=== PATIENT | male | born 1995 ===

== ENCOUNTER 2017-12-02 20:49 | Emergency (ER) | payer MEDICAID ==
[2017-12-02 21:37] VITALS: BP 133/86; PULSE 87; RESP 20; TEMP 98.5; O2SAT 98
[2017-12-02] MEDS ORDERED: Benzoin Compound Tincture (60 ml) ONE (22:33)
--- NOTE | 2017-12-02 22:54 | C.PDOC ---
History Of Present Illness 21 year old male presents to the emergency department for evaluation of a dog bite to the left lower leg sustained prior to arrival. Patient reports walking on the street when a dog began to hope him and "grabbed me by my leg". Patient noticed a laceration to his left leg. Pt states , " I might know the contract administrative assistant of the dog, and dog is "crazy". Otherwise, pt denies any other associated injuries, denies fever, chills, throat tightness or swelling, CP, SOB, abd. pain, N/V, denies left leg weakness, deformity, sensory or vascular deficits to Left leg. Ambulate to Ed for evaluation, not in any apparent distress. FYI: Pt reports" I have wedding tomorrow", and request to be seen quick and discharge now. Pt was offered rabies vaccination but refused at this time, " I dont have time and I will check with dogs contract administrative assistant". Time Seen by Provider: 12/02/17 21:45 Chief Complaint (Nursing): Bite History Per: Patient History/Exam Limitations: no limitations Onset/Duration Of Symptoms: Hrs Current Symptoms Are (Timing): Still Present Location Of Injury: Left: Leg Quality Of Symptoms: Other (laceration/bite) - Animal Bite Description Of The Attack: Unprovoked Attack Description Of The Animal: Unknown Reports Animal Appears: Unknown Past Medical History Reviewed: Historical Data, Nursing Documentation, Vital Signs Vital Signs: Last Vital Signs Temp 98.5 F 12/02/17 21:35 Pulse 87 12/02/17 21:35 Resp 20 12/02/17 23:11 BP 133/86 12/02/17 21:35 Pulse Ox 98 12/02/17 23:26 - Medical History PMH: No Chronic Diseases Surgical History: No Surg Hx Family History: States: No Known Family Hx - Social History Hx Alcohol Use: No Hx Substance Use: No - Immunization History Hx Tetanus Toxoid Vaccination: Yes ("this year") Review Of Systems Except As Marked, All Systems Reviewed And Found Negative. Musculoskeletal: Positive for: Leg Pain (left leg) Skin: Positive for: Other (laceration to lower left leg) Physical Exam - Physical Exam Appears: Well, Non-toxic, No Acute Distress Skin: Normal Color, Warm, Dry, Other (linear laceration to left lower leg) Head: Normacephalic Eye(s): bilateral: PERRL Nose: No Flaring, No Discharge Oral Mucosa: Moist, No Drooling Throat: No Erythema, No Drooling Neck: Trachea Midline, Supple Cardiovascular: Rhythm Regular Respiratory: No Decreased Breath Sounds, No Accessory Muscle Use, No Stridor, No Wheezing Gastrointestinal/Abdominal: Soft, No Tenderness, No Distention, No Guarding, No Rebound Extremity: Normal ROM, No Pedal Edema, No Deformity, No Swelling Neurological/Psych: Oriented x3, Normal Speech, Normal Motor, Normal Sensation, Normal Reflexes ED Course And Treatment O2 Sat by Pulse Oximetry: 98 (RA) Pulse Ox Interpretation: Normal Progress Note: On re-eval, pt is afebrile, hemodynamicaly stable. NOn-toxic. Ambulatory in ED with stable gait. ENT: No acute findings. Neck: Supple, (-) midline tenderness. Lungs: CTA B/L, BS equal B/L. LLE: wounds throughly cleaned, covered with steri-stips. FAROM, no neurovascular deficits, no cellulitis. Neurologicaly intact. tetanus is UTD. Abx oral given. Pt advised to F/U with dogs contract administrative assistant/Animal Control/or returen to ED to complete rabies vaccination chandni. Pt understand and agrees with plan. Laceration - Laceration Repair Left lower leg Wound Length (In cm): multiple with total length 10cm Description Of Wound: Linear (superficial) Anesthesia: Lidocaine 2% Wound Examination: Irrigated With Saline, No FB With Wound Exploration, No Tendon Injury With Wound Exploration Wound Closure: Steri Strips Wound Complexity: Simple Disposition Counseled Patient/Family Regarding: Diagnosis, Need For Followup, Rx Given - Disposition Referrals: [facility] [Outside] Disposition: HOME/ ROUTINE Disposition Time: 22:52 Condition: STABLE Additional Instructions: Keep wound dry for 3-4 days Encourage to find dog or contract administrative assistant for rabies vaccination status, or contact animal control. return to ED at any time to complete treatment with rabies vaccination Take medication as prescribed return to Ed at any time if nay worsening or new changes. Prescriptions: Amoxicillin/Clavulanate [Augmentin 875 MG-125 MG] 1 tab PO BID #14 tab traMADol [Ultram] 50 mg PO TID #7 tab Instructions: Animal Bites (DC) Forms: PAK (Hungarian) - Clinical Impression Clinical Impression: Animal bite wound - PA / COLLECTIONS ASSOCIATE / Resident Statement MD/DO has reviewed & agrees with the documentation as recorded. - Scribe Statement The provider has reviewed the documentation as recorded by the Scribe (Deondre Connors) All medical record entries made by the Scribe were at my direction and personally dictated by me. I have reviewed the chart and agree that the record accurately reflects my personal performance of the history, physical exam, medical decision making, and the department course for this patient. I have also personally directed, reviewed, and agree with the discharge instructions and disposition.
[2017-12-02] MEDS ORDERED: Amoxicillin-Clav 875-125 mg Tab PO ONE (22:57)
[2017-12-02] MEDS: Amoxicillin-Clav 875-125 mg Tab PO STA (22:58)
== END 2017-12-02 23:10 | disposition home or self-care (01) ==
LOC: C.ER 20:49
DX: S81.852A Open bite, left lower leg, initial encounter (principal); W54.0XXA Bitten by dog, initial encounter

== ENCOUNTER 2017-12-06 08:23 | Emergency (ER) | payer MEDICAID ==
[2017-12-06 08:36] VITALS: BMI 17.9
[2017-12-06 08:38] VITALS: RESP 18; O2SAT 100
--- NOTE | 2017-12-06 08:43 | C.PDOC ---
History Of Present Illness 22 year old male presents to the ED complaining of persistent left eye blurry vision with foreign body sensation from left periorbital injury sustained 4 days ago. He denies any LOC, nausea, vomiting, fever. He was seen on 12/02 for left leg bite but he is noncompliant with antibiotics stating "I only got the antibiotics today". L PERIORB INJURY 4 DAYS AGO CO PERSIST L EYE BLURRY VISION, FB SENSATION. NO LOC , NV. SEEN 12/02 FOR L LEG BITE BUT NONCOMPLIANT W ABX "I ONLY GOT THE ABX TODAY ". NO FEVER. SEEN 12/02 S/P DOG BITE. GIVEN Amoxicillin/Clavulanate [Augmentin 875 MG-125 MG] 1 tab PO BID #14 tab traMADol [Ultram] 50 mg PO TID #7 tab EXAM NONTOXIC HEENT L PERIORB HEMATOMA W MILD SWELLING, NONPITTING. CONJ CLEAR, NO HYPHEMA CHRISTINE. NO GROSS VISION DEF. EOMI. NO CREPITUS. NOSE MIDLINE NECK SUPPLE NEURO NO FOCAL DEF SKIN MULT LACS L LOWER LAC W SCANT LOCAL ERYTHEMA. NO PUS EXT L LOWER LEG NO SWELL, DEFORM. Time Seen by Provider: 12/06/17 08:41 Chief Complaint (Nursing): Eye Problem History Per: Patient History/Exam Limitations: no limitations Onset/Duration Of Symptoms: Days Current Symptoms Are (Timing): Still Present Injury To Eye?: Yes Associated Symptoms: Decreased Vision, FB Sensation Past Medical History Reviewed: Historical Data, Nursing Documentation, Vital Signs Vital Signs: Last Vital Signs Temp 98.2 F 12/06/17 08:35 Pulse 96 H 12/06/17 08:35 Resp 18 12/06/17 08:35 BP 132/92 H 12/06/17 08:35 Pulse Ox 100 12/06/17 09:45 - Medical History PMH: No Chronic Diseases Surgical History: No Surg Hx Family History: States: No Known Family Hx - Social History Hx Alcohol Use: No Hx Substance Use: No - Immunization History Hx Tetanus Toxoid Vaccination: Yes ("this year") Hx Influenza Vaccination: No Hx Pneumococcal Vaccination: No Review Of Systems Except As Marked, All Systems Reviewed And Found Negative. Constitutional: Negative for: Fever Eyes: Positive for: Vision Change, Other (FB sensation ) Gastrointestinal: Negative for: Nausea, Vomiting Physical Exam - Physical Exam Appears: Non-toxic Skin: Other (MULT LACS L LOWER LAC W SCANT LOCAL ERYTHEMA. NO PUS) Head: Normacephalic Eye(s): bilateral: PERRL, EOMI, right: Normal Inspection, left: Other (L PERIORB HEMATOMA W MILD SWELLING, NONPITTING. CONJ CLEAR, NO HYPHEMA. NO GROSS VISION DEF. NO CREPITUS.) Nose: Other (Midline ) Oral Mucosa: Moist Neck: Supple Chest: Symmetrical Extremity: Deformity, No Swelling Neurological/Psych: Oriented x3, Normal Speech, No Other (focal deficits ) Gait: Steady ED Course And Treatment O2 Sat by Pulse Oximetry: 100 (RA) Pulse Ox Interpretation: Normal Progress - Data Reviewed Data Reviewed: Old records Medical Decision Making Medical Decision Making: SEEN 12/02 S/P DOG BITE. GIVEN Amoxicillin/Clavulanate [Augmentin 875 MG-125 MG] 1 tab PO BID #14 tab traMADol [Ultram] 50 mg PO TID #7 tab Disposition Counseled Patient/Family Regarding: Studies Performed, Diagnosis, Need For Followup, Rx Given - Disposition Referrals: Ignacio Nuñez [Staff Provider] - Disposition: HOME/ ROUTINE Disposition Time: 11:16 Condition: IMPROVED Additional Instructions: TAKE ANTIBIOTICS PREVIOUSLY PRESCRIBED. FOLLOW UP IMMEDIATELY AT OPTHOMOLOGY OFFICE Prescriptions: Polymyxin/Trimethoprim Sulfate [Polytrim Ophth Soln] 1 drop OD Q3H #1 bottle Instructions: Eye Contusion (DC) Forms: [facility] (Malian), Work Excuse - Clinical Impression Clinical Impression: Periorbital contusion, Blurry vision - Scribe Statement The provider has reviewed the documentation as recorded by the Danielibdillan Reeves All medical record entries made by the Scribe were at my direction and personally dictated by me. I have reviewed the chart and agree that the record accurately reflects my personal performance of the history, physical exam, medical decision making, and the department course for this patient. I have also personally directed, reviewed, and agree with the discharge instructions and disposition.
[2017-12-06] MEDS ORDERED: Amoxicillin-Clav 875-125 mg Tab PO STA (08:59)
[2017-12-06] MEDS ORDERED: Amoxicillin-Clav 875-125 mg Tab PO ONE (09:14)
--- NOTE | 2017-12-06 11:07 | CT ---
Date of service: 12/06/2017 PROCEDURE: CT ORBITS WITHOUT CONTRAST. HISTORY: L PERIORB TRAUMA COMPARISON: None available. TECHNIQUE: Axial CT images of the orbits were obtained. Coronal and sagittal reformats were generated. Radiation dose: Total exam DLP = 803.24 mGy-cm. This CT exam was performed using one or more of the following dose reduction techniques: Automated exposure control, adjustment of the mA and/or kV according to patient size, and/or use of iterative reconstruction technique. FINDINGS: RIGHT ORBIT: RIGHT BONY ORBIT: Normal. RIGHT INTRAORBITAL STRUCTURES: Globe: Normal. Extraocular muscles: Normal. Post septal space: Normal. Optic Nerve: Normal. Lacrimal Apparatus: Normal. RIGHT PRESEPTAL SOFT TISSUES: Normal. LEFT ORBIT: LEFT BONY ORBIT: Normal. LEFT INTRAORBITAL STRUCTURES: Globe: Normal. Extraocular muscles: Normal. Post septal space: Mild soft tissue swelling seen in the left periorbital region. Optic Nerve: Normal. . Lacrimal Apparatus: Normal. LEFT PRESEPTAL SOFT TISSUES: Normal. OTHER: There is mucosal thickening and almost complete opacification of the right frontal and partial opacification of the right ethmoid sinuses. Mild mucosal thickening noted in the bilateral maxillary sinuses. IMPRESSION: Mild left periorbital soft tissue swelling. No evidence of acute fracture. No evidence of postseptal fat stranding or retrobulbar hematoma. Mucosal thickening and partial opacification of the right frontal and right ethmoid sinuses suggestive of sinusitis.
[2017-12-06 11:24] VITALS: BP 116/71; PULSE 70; TEMP 98
== END 2017-12-06 11:27 | disposition home or self-care (01) ==
LOC: C.ER 08:23
DX: S00.12XA Contusion of left eyelid and periocular area, initial encounter (principal); W54.0XXA Bitten by dog, initial encounter; H53.8 Other visual disturbances